=== PATIENT | male | born 1960 | race Two or more races ===

== ENCOUNTER 2019-08-27 13:27 | Inpatient (IN) | payer OTHER ==
[~2019-08-27] VITALS: Ht 175.3 cm; Wt 79.4 kg
[2019-08-27] MEDS ORDERED: TRAMADOL PO (14:00)
[2019-09-01] MEDS ORDERED: TRAMADOL HCL100 M1 (08:04)
== END 2019-09-02 13:09 | DRG 470 ==
LOC: SURH 08-31 07:00 → O/R 08-31 08:53 → SURH 08-31 10:42
PROVIDERS: ADMIT Orthopaedic Surgery
PROC: 0QU50JZ Supplement Left Acetabulum with Synthetic Substitute, Open Approach (ICD-10-PCS; 2019-08-31)
PROC: 0SR90JZ Replacement of Right Hip Joint with Synthetic Substitute, Open Approach (ICD-10-PCS; principal; 2019-08-31 07:00)
DX: M16.11 Unilateral primary osteoarthritis, right hip (principal); M06.9 Rheumatoid arthritis, unspecified; Z96.651 Presence of right artificial knee joint

== ENCOUNTER 2021-08-13 11:31 | Outpatient (CLI) | payer OTHER ==
[~2021-08-13 11:31] MED LIST: TRAMADOL HCL100 M1; TRAMADOL PO
== END 2021-08-13 11:40 | disposition home or self-care (01) ==
LOC: LAB 11:31
PROVIDERS: ATTEND Orthopaedic Surgery
DX: D64.9 Anemia, unspecified (principal); D68.8 Other specified coagulation defects; N39.0 Urinary tract infection, site not specified; Z76.89 Persons encountering health services in other specified circumstances; I10 Essential (primary) hypertension